=== PATIENT | female | born 1965 | race Hispanic/Latino ===

== ENCOUNTER 2020-01-26 13:10 | Outpatient (CLI) | payer OTHER ==
--- NOTE | 2020-01-26 14:42 | RAD ---
PA AND LATERAL VIEWS CHEST: Date: 01/26/2020 HISTORY: Disturbance of skin sensation. FINDINGS: There are no previous exams for comparison. The heart size is normal. The lungs are expanded without focal areas of consolidation, pneumothoraces , or pleural effusions. A calcified granuloma is seen in the right lower lung. IMPRESSION: No acute process. POS: [facility]
== END 2020-01-26 13:11 | disposition home or self-care (01) ==
LOC: BICRAD 13:10
PROVIDERS: ATTEND Family Medicine
DX: R20.9 Unspecified disturbances of skin sensation (principal); M54.6 Pain in thoracic spine
CPT/HCPCS: 71046